=== PATIENT | female | born 1975 | race Caucasian/White ===

== ENCOUNTER 2022-09-10 12:44 | Outpatient (CLI) | payer BC, SELFPAY | END 2022-09-10 12:45 | disposition home or self-care (01) | LOC: DI.CARD 12:45 | PROVIDERS: PCP Nurse Practitioner; Visit Provider Internal Medicine Cardiovascular Disease | CPT/HCPCS: 93010 ==

== ENCOUNTER 2022-09-11 11:17 | Outpatient (CLI) | payer BC, SELFPAY ==
--- NOTE | 2022-09-11 11:15 | RT.EKG_ITS ---
APPROVED REPORT Exam: Resting ECG Reason for Exam: cardiac evaluation Patient Location: O HR:64 bpm ECG Measurements Heart Rate 64 AXIS [place] 172 P 6 QRSd 84 QRS 39 QT 393 T 36 QTc 406 Conclusion Sinus rhythm...normal P axis, V-rate 50- 99 Normal Electrocardiogram
== END 2022-09-11 11:18 | disposition home or self-care (01) ==
LOC: DI.CARD 11:18
PROVIDERS: PCP Nurse Practitioner; Visit Provider Internal Medicine Cardiovascular Disease
DX: I20.9 Angina pectoris, unspecified (principal)
CPT/HCPCS: 93010

== ENCOUNTER 2022-10-16 10:43 | Emergency (ER) | payer BC, SELFPAY ==
[2022-10-16] VITALS (39 sets, daily range): BP systolic 104–153; BP diastolic 60–82; PULSE 56–91; RESP 12–34; TEMP 36.3; O2SAT 95–100
--- NOTE | 2022-10-16 10:45 | RT.EKG_ITS ---
APPROVED REPORT Exam: Resting ECG Reason for Exam: chest pain Patient Location: E HR:69 bpm ECG Measurements Heart Rate [address] 185 P 51 QRSd 82 QRS 40 QT 395 T 44 QTc 421 Conclusion Sinus rhythm...normal P axis, V-rate 60- 99 Ventricular premature complex...V complex w/ short R-R interval sinus rhythm, normal axis, normal intervals, non ischemic
--- NOTE | 2022-10-16 10:45 | DI.RAD_ITS ---
Exam(s) XR PORTABLE CHEST AP EXAM: XR PORTABLE CHEST AP CLINICAL HISTORY: chest pain. TECHNIQUE: 2D digital imaging was performed. COMPARISON: No exams were available for comparison FINDINGS: Single AP portable view. Heart size is upper normal. The mediastinum is not widened. Lungs are clear. No infiltrates nor obvious pleural effusions. IMPRESSION: No acute pulmonary findings on this single AP portable view of the chest. DATA REPOSITORY: RADIATION DOSE DELIVERED:
--- NOTE | 2022-10-16 10:53 | W.ED.GENAD ---
Discharge Plan Disposition Patient Disposition: Home Condition: Improving Discharge Details Chief Complaint: Chest Pain Clinical Impression: Chest pain Primary Care Provider: Joanne Hernandez ED Provider: Nate Crystal Home Meds and New Rx's Prescriptions: No Action fexofenadine-pseudoephedrine [Idalmis-D 12 Hour] 60-120 mg tablet extended release 12 hr 1 tab PO Q12H PRN fluticasone propionate 50 mcg/actuation spray,suspension 1 spray intranasal DAILY Rx Instructions: administer into each nostril albuterol sulfate 2.5 mg /3 mL (0.083 %) solution for nebulization 2.5 mg inhalation Q6H isosorbide mononitrate 30 mg tablet extended release 24 hr 30 mg PO DAILY Qty: 30 11RF atorvastatin 20 mg tablet 20 mg PO DAILY spironolactone 25 mg tablet 25 mg PO DAILY metoprolol succinate 50 mg tablet extended release 24 hr 50 mg PO DAILY aspirin [Adult Low Dose Aspirin] 81 mg tablet,delayed release (DR/EC) 81 mg PO DAILY albuterol sulfate 90 mcg/actuation HFA aerosol inhaler 1 puff inhalation Q4H PRN Discharge Instructions Instructions: Chest Pain (ED) Additional Instructions: Please follow-up with your primary care physician and cold storage supervisor. Medical Decision Making 47-year-old female history of microvascular coronary artery disease, presents referred by primary cardiology team for evaluation of continued chest pain nonexertional over the last several days, mild shortness of breath, no history of stents open heart surgery or thromboembolic disease. Patient is relatively nontoxic nontachycardic normotensive not hypoxic. Lungs clear bilaterally, mild peripheral edema to bilateral ankles. Consider ACS versus musculoskeletal chest pain versus anxiety versus less likely COPD or asthma lower suspicion for PE or aortic pathology. Will obtain screening labs chest x-ray EKG, trial of nitro, will administer aspirin 324, pending labs imaging and reassessment of symptoms patient disposition consider home with close follow-up versus admission for further cardiac evaluation. 12: 00 patient resting comfortably feeling much better asymptomatic from a chest pain standpoint. Awaiting second troponin given history. 14: 25 patient resting comfortably chest pain-free to troponin negative. EKG nonischemic. Patient to follow-up with her primary care doctor and cold storage supervisor. HPI General Date/Time Provider Initiated Documentation: 10/16/22 10:52. HPI Narrative: 47-year-old female history of microvascular cardiac disease, presents with anterior chest pain nonexertional over the past several days, has frequent chest pain over the past several months to years, no prior stents or open heart surgery, no history of thromboembolic disease. Referred in by primary cold storage supervisor for evaluation of recurrent chest pain. Related Data Home Medications Medication Instructions Recorded Confirmed albuterol sulfate 90 mcg/actuation 1 puff inhalation Q4H PRN 05/31/22 10/16/22 aerosol inhaler aspirin 81 mg tablet,delayed 81 mg PO DAILY 05/31/22 10/16/22 release (Adult Low Dose Aspirin) atorvastatin 20 mg tablet 20 mg PO DAILY 05/31/22 10/16/22 metoprolol succinate 50 mg 50 mg PO DAILY 05/31/22 10/16/22 tablet,extended release 24 hr spironolactone 25 mg tablet 25 mg PO DAILY 05/31/22 10/16/22 albuterol sulfate 2.5 mg/3 mL 2.5 mg inhalation Q6H 09/11/22 10/16/22 (0.083 %) solution for nebulization fexofenadine 60 mg-pseudoephedrine 1 tab PO Q12H PRN 09/11/22 10/16/22 ER 120 mg tablet,ext.release,12 hr (Idalmis-D 12 Hour) fluticasone propionate 50 1 spray intranasal DAILY 09/11/22 10/16/22 mcg/actuation nasal spray,suspension isosorbide mononitrate 30 mg 30 mg PO DAILY #30 tabs 09/11/22 10/16/22 tablet,extended release 24 hr Previous Rx's Medication Instructions Recorded isosorbide mononitrate 30 mg 30 mg PO DAILY #30 tabs 09/11/22 tablet,extended release 24 hr Allergies Allergy/AdvReac Type Severity Reaction Status Date / Time shrimp Allergy Intermediate hives, Verified 10/16/22 10:52 swelling General Stated Complaint: Chest Pain ESTRELLA: 2 Review of Systems Narrative: Review of Systems Constitutional: negative Eyes: negative ENT: negative Cardiovascular: Chest pain Respiratory: negative Gastrointestinal: negative : negative Musculoskeletal: negative Skin: negative Neurologic: negative Psych: negative PFSH All Active Problems (Updated 10/16/22 @ 14:26 by Nate Crystal MD) Chest pain (Acute) Microvascular angina (Acute) Diabetes type 2, controlled (Acute) Obesity (Chronic) Other fatigue (Acute) Major depressive disorder, recurrent, mild (Acute) Asthma (Chronic) PCOS (polycystic ovarian syndrome) (Acute) Hypertension (Chronic) Diabetes (Chronic) Anemia (Chronic) Adjustment disorder with depressed mood (Acute) ANISHA (obstructive sleep apnea) (Chronic) ADHD (Acute) Surgical History History of (2007) History of cholecystectomy (2009) History of deviated nasal septum (~2018) Family History Maternal Grandfather Alcohol use disorder Heart attack Father Prostate cancer Cancer Lymphoma Mother Cardiac aneurysm Rheumatoid arthritis Paternal Grandfather Cancer Lymphoma Paternal Grandmother Alzheimer disease Maternal Grandmother Stroke Social History Smoking/Tobacco Use Status: Former Tobacco Use tobacco type: cigarettes Tobacco: How many years used: 5 Smoking risk assessment performed?: Yes Alcohol Intake: current Alcohol Intake frequency: a few times a week Drug use: Never Substance use type: does not use Adopted: No Caregiver/Support person: No Foster care: No Household members: spouse and children Housing: house Number of Children: 1 Communication Needs: None Education Level: college Details: Bachelor's Degree Do you need help understanding health information?: Never 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[place], [place] Pets and animals: Yes Pets and animals: cat(s) and dog(s) Sexually active: Yes Do you think of yourself as: bisexual Current gender identity: female What is your relationship status?: How often do you talk on the phone with friends or family?: once per week How often do you get together with friends or relatives?: once per week Do you belong to any clubs or organized social groups?: no Panel score (0-1 are the most socially isolated patients): 1 What type of physical activity do you participate in: none Codi/Rastafarian: None Special codi needs: No Seatbelt use: sometimes Drive intox or ride w/intox party bus driver: No Do you feel safe at home: Yes Do you feel safe in your relationship?: Yes Exam Narrative Exam Narrative: Physical Examination General: alert, awake, cooperative, mildly uncomfortable HEENT: normocephalic, atraumatic; PERRL, EOM intact, conjunctiva normal; no nasal discharge; moist mucous membranes, oral and pharyngeal mucosa normal, tolerating secretions Neck: supple, trachea midline; full ROM Chest: normal to inspection Respiratory: normal respiratory effort, speaking in full sentences, clear to auscultation, no wheezing, rales or rhonchi Cardiac: regular rate, regular rhythm, S1S2 intact, no murmurs rubs or gallops GI: abdomen soft, non-tender, non-distended; no palpable mass or hepatosplenomegaly Skin: no lesions, rashes or trauma appreciated Neuro: AAOx3, normal speech, moving all extremities Extremities: Mild edema bilateral ankles Psych: Appropriate mood and affect Course Vital Signs Vital signs: Vital Signs Temperature 36.3 C L 10/16/22 10:49 Pulse 81 10/16/22 10:49 Respiratory Rate 24 10/16/22 10:49 Blood Pressure 153/78 H 10/16/22 10:49 Pulse Oximetry 98 10/16/22 10:49 Temperature 36.3 C L 10/16/22 10:49 Temperature Source Oral 10/16/22 10:49 Pulse 81 10/16/22 10:49 Respiratory Rate 24 10/16/22 10:49 Blood Pressure 153/78 H 10/16/22 10:49 Blood Pressure Position Supine 10/16/22 10:49 Pulse Oximetry 98 10/16/22 10:49 Oxygen Delivery Method Room Air 10/16/22 10:49 Oxygen Flow Rate 0 10/16/22 10:49 Pain Level 4 10/16/22 10:49
[2022-10-16 11:05] LABS: Abs Immature Grans 0.03 10^3/uL (0.0-0.06); Absolute Basophil Count 0.06 10^3/uL (0.0-0.2); Absolute Eosinophil Count 0.47 10^3/uL (0.0-0.7); Absolute Lymphocyte Count 2.58 10^3/uL (1.2-3.4); Absolute Monocyte Count 0.57 10^3/uL (0.1-0.8); Absolute Neutrophil Count 6.56 10^3/uL (1.2-6.7); Basophils % 0.6; Eosinophils % 4.6; HCT 42.9 % (36.0-46.0); HGB 13.5 g/dL (11.2-15.7); Immature Grans % 0.3; Lymphocytes % 25.1; MCH 26.1 pg (27.0-33.0); MCHC 31.5 % (32.0-36.0); MCV 83 fL (80-95); MPV 10.1 fL (8.0-11.0); Monocytes % 5.6; Neutrophils % 63.8; Platelet Count 360 10^3/uL (130-400); RBC 5.18 10^6/uL (3.93-5.22); RDW 14.1 % (11.7-14.6); RDW-SD 42.5 fL; WBC 10.27 10^3/uL (4.4-10.8)
[2022-10-16 11:20] LABS: PTT Activated 27.5 sec (21.5-31.9); Prothrombin Time 10.2 sec (9.3-11.0)
[2022-10-16 11:31] LABS: ALT 34 U/L (14-59); AST 20 U/L (15-37); Albumin 3.8 g/dL (3.4-5.0); Alkaline Phosphatase 142 U/L (46-116); Anion Gap 9.9 mmol/L (3-11); BUN 13 mg/dL (7-18); Bilirubin, Total 0.4 mg/dL (0.2-1.0); CO2 29.1 mmol/L (21.0-32.0); CREATININE 0.9 mg/dL (0.55-1.02); Calcium 9.2 mg/dL (8.5-10.1); Chloride 104 mmol/L (98-107); Estimated GFR 79.85 (mL/min/1.73m2); Glucose 111 mg/dL (74-106); NT-proBNP 15 pg/mL (<300); Potassium 3.7 mmol/L (3.5-5.1); Sodium 143 mmol/L (136-145); TSH (W/Ref FT4) 0.98 uIU/mL (0.36-3.74); Total Protein 8.2 g/dL (6.4-8.2); Troponin I < 50 ng/L (<or=60)
[2022-10-16] MEDS: nitroGLYcerin 0.4 MG TAB SL (11:49)
[2022-10-16] MEDS: Aspirin 81 MG CHEW 324 MG CH (11:49)
[2022-10-16 14:14] LABS: Troponin I < 50 ng/L (<or=60)
== END 2022-10-16 14:34 | disposition home or self-care (01) ==
PROVIDERS: Emergency Provider Emergency Medicine; PCP Nurse Practitioner
DX: R07.89 Other chest pain (principal); R06.02 Shortness of breath; R60.0 Localized edema; I25.10 Atherosclerotic heart disease of native coronary artery without angina pectoris; Z79.82 Long term (current) use of aspirin; Z87.891 Personal history of nicotine dependence
CPT/HCPCS: 80053; 93005; 99283; 71045; 83880; 84443; 84484; 85025; 85610; 85730; 93010; 99285

== ENCOUNTER 2023-02-08 01:37 | Outpatient (CLI) | payer BC, SELFPAY ==
[2023-02-08 08:01] LABS: Abs Immature Grans 0.03 10^3/uL (0.0-0.06); Absolute Basophil Count 0.09 10^3/uL (0.0-0.2); Absolute Eosinophil Count 0.49 10^3/uL (0.0-0.7); Absolute Lymphocyte Count 2.27 10^3/uL (1.2-3.4); Absolute Monocyte Count 0.74 10^3/uL (0.1-0.8); Absolute Neutrophil Count 8.06 10^3/uL (1.2-6.7); Basophils % 0.8; Eosinophils % 4.2; HCT 39.9 % (36.0-46.0); HGB 12.7 g/dL (11.2-15.7); Immature Grans % 0.3; Lymphocytes % 19.4; MCH 26.3 pg (27.0-33.0); MCHC 31.8 % (32.0-36.0); MCV 83 fL (80-95); MPV 10.2 fL (8.0-11.0); Monocytes % 6.3; Platelet Count 350 10^3/uL (130-400); RBC 4.82 10^6/uL (3.93-5.22); RDW 14.1 % (11.7-14.6); RDW-SD 42.4 fL; WBC 11.68 10^3/uL (4.4-10.8)
[2023-02-08 08:04] LABS: ESR 41 mm/hr (0-20)
[2023-02-08 09:12] LABS: C-Reactive Protein 0.93 mg/dL (0.0-0.3)
[2023-02-08 11:01] LABS: Vitamin B12 180 pg/mL (193-986)
[2023-02-08 11:13] LABS: Vitamin D 25 Total 10.6 ng/mL (30-100)
[2023-02-08 19:17] LABS: Rheumatoid Factor <8.6 IU/mL (<12.0)
[2023-02-11 12:07] LABS: Lyme Ab w Rflx to Lyme Confirm Negative (Negative)
[2023-02-11 12:41] LABS: ANA Interpretation Negative (Negative)
[2023-02-11 18:06] LABS: Anaplasma phagocytophilum Negative (Negative); B. miyamotoi PCR Negative (Negative); Babesia divergens/MO-1 Negative (Negative); Babesia duncani Negative (Negative); Babesia microti Negative (Negative); Ehrlichia chaffeensis Negative (Negative); Ehrlichia ewingii/canis Negative (Negative); Ehrlichia muris eauclairensis Negative (Negative)
== END 2023-02-08 01:38 | disposition home or self-care (01) ==
LOC: LBO 01:38
PROVIDERS: PCP Nurse Practitioner; Visit Provider Nurse Practitioner
DX: R06.02 Shortness of breath (principal); R53.83 Other fatigue; R60.9 Edema, unspecified; R79.82 Elevated C-reactive protein (CRP)
CPT/HCPCS: 36415; 82306; 85652; 87798; 82607; 85025; 86038; 86140; 86431; 86618

== ENCOUNTER 2023-03-11 10:27 | Outpatient (REF) | payer BC, SELFPAY ==
--- NOTE | 2023-03-11 09:50 | PAPFT_PTH ---
PATIENT: Rafia Busby LOC: [facility] U#:[id number] AGE/SX: 47/F ROOM: RE03/11/[address]: Angela Gleason NP : 1975 BED: DIS: 03/11/2023 SPEC #: [id number] RECD: 03/11/23 13:05 STATUS: FINESSE RENicolette #: [id number] DELROY: 03/11/23 09:[address]: Angela Gleason NP DEPT: [facility] Cytology RECD BY: Opal Young ENTERED: 03/11/23 13:05 SP TYPE: PAPFT OTHR DR: Joanne Hernandez APRN Tissues: 1 - CX/ENDOCX FOR PAP SMEARS Procedures: PAP THIN PREP/UVM Screening HPV DNA PROBE Comments: [id number]
== END 2023-03-11 10:28 | disposition home or self-care (01) ==
LOC: LBN 10:27
PROVIDERS: PCP Nurse Practitioner; Visit Provider Nurse Practitioner Women's Health
DX: Z12.4 Encounter for screening for malignant neoplasm of cervix (principal); Z11.51 Encounter for screening for human papillomavirus (HPV)
CPT/HCPCS: 88142; 87624

== ENCOUNTER → 2023-03-26 00:59 | Outpatient (CLI) | payer BC, SELFPAY ==
--- NOTE | 2023-03-26 07:45 | DI.MAMMO_ITS ---
Exam(s) MAMMO SCREENING EXAM: MAMMO SCREENING CLINICAL HISTORY: screening TECHNIQUE: Bilateral full field digital CC and MLO mammographic images were obtained with 3D tomosyn thesis and utilizing computer aided detection (CAD). COMPARISON: Available for comparison. FINDINGS: Masses/Architectural Distortion: There is a focal asymmetry in the upper right breast on the MLO view . This may represent overlying fibroglandular tissue, but spot compression views are requested for f urther evaluation. Microcalcifications: No suspicious pleomorphic-type are seen. Skin Thickening/Nipple Retraction: None. IMPRESSION: 1. Focal asymmetry in the upper right breast on the MLO view. 2. Spot compression views requested for further evaluation. Limited ultrasound may be indicated at t hat time. BI-RADS Category 0 - Assessment Incomplete: Need additional imaging evaluation Breast Density - Category C - Heterogeneously dense Breast density category C or D implies that the patient has dense breast tissue. Dense breast tissue is very common and is not abnormal but dense breast tissue can make it harder to find cancer on a ma mmogram. Also, dense breast tissue may increase their breast cancer risk. This information about the result of the mammogram report was provided to the patient to raise their awareness. Use this report when you speak with the patient about their risks for breast cancer, which includes their family hist ory. At that time, you may recommend for more screening tests (Ultrasound or MRI) as they might be us eful based on their risk. A negative radiographic report should not delay biopsy if a dominant or clinically suspicious mass is present. Up to ten percent of cancers are not identified on mammography. A negative report may reinforce clinical impression. Adenosis and dense breasts may obscure an underlying neoplasm. False positive reports average 6 to 10%. Patient will receive a letter notifying them of these results.
== END ==
PROVIDERS: PCP Nurse Practitioner; Visit Provider Nurse Practitioner Women's Health
DX: Z12.31 Encounter for screening mammogram for malignant neoplasm of breast (principal)
CPT/HCPCS: 77063; 77067

== ENCOUNTER → 2023-04-05 00:17 | Outpatient (CLI) | payer BC, SELFPAY ==
--- NOTE | 2023-04-05 | DI.MAMMO_ITS ---
Exam(s) MAMMO SCREEN CALL BACK UNI EXAM: MAMMO SCREEN CALL BACK UNI CLINICAL HISTORY: FOCAL ASYMMETRY UPPER RIGHT BREAST R92.8 ABNL MAMMO. TECHNIQUE: Craniocaudal and mediolateral oblique Full Field Digital Mammography views of the right b reast with Computer Aided Diagnosis. COMPARISON: Comparison is made with prior examinations. FINDINGS: Mammography/Tomosynthesis: Masses/Architectural Distortion: The area identified is no longer visualized and rendered less concer chai. It appears to represent overlying fibroglandular tissue. No mass or areas of architectural di stortion are seen. Microcalcifictions: No suspicious pleomorphic-type are seen. Skin Thickening/Nipple Retraction: None. IMPRESSION: 1. No evidence of malignancy is noted. 2. Unless there is more urgent need, follow-up screening mammography is recommended, as per [place] [employer] guidelines. 3. The findings were discussed with the patient on the date of the examination. BI-RADS Category 1 - Negative Breast Density - Category C - Heterogeneously dense Breast density Category C or D implies that the patient has dense breast tissue. Dense breast tissue can make it harder to find cancer on a mammogram. Dense breast tissue is also associated with an incr eased risk of breast cancer. This information about the result of the mammogram report was provided to the patient to raise their awareness. Use this report when you speak with the patient about their risks for breast cancer, which includes their family history. At that time, you may recommend additional screening tests (Ultrasoun d or MRI) as these tests may add significant information. A negative radiographic report should not delay biopsy if a dominant or clinically suspicious mass is present. Up to ten percent of cancers are not identified on mammography. A negative report may reinforce clinical impression. Adenosis and dense breasts may obscure an underlying neoplasm. False positive reports average 6 to 10%. Patient will receive a letter notifying them of these results.
== END ==
PROVIDERS: PCP Nurse Practitioner; Visit Provider Nurse Practitioner Women's Health
DX: Z12.31 Encounter for screening mammogram for malignant neoplasm of breast (principal); R92.8 Other abnormal and inconclusive findings on diagnostic imaging of breast
CPT/HCPCS: 77063; 77067

== ENCOUNTER 2023-09-18 02:33 | Outpatient (CLI) | payer BC, SELFPAY ==
[2023-09-18 09:34] LABS: TSH (W/Ref FT4) 1.29 uIU/mL (0.36-3.74)
[2023-09-24 10:14] LABS: FSH 5.9 mIU/mL (See Note)
== END 2023-09-18 02:34 | disposition home or self-care (01) ==
LOC: LBO 02:33
PROVIDERS: PCP Nurse Practitioner; Visit Provider Obstetrics & Gynecology
DX: R23.2 Flushing (principal)
CPT/HCPCS: 36415; 83001; 84443

== ENCOUNTER 2023-12-03 18:14 | Outpatient (REF) | payer BC, SELFPAY | END 2023-12-03 18:15 | disposition home or self-care (01) | LOC: LBN 18:14 | PROVIDERS: PCP Nurse Practitioner; Visit Provider Nurse Practitioner | DX: R39.89 Other symptoms and signs involving the genitourinary system (principal); Z87.898 Personal history of other specified conditions; R82.89 Other abnormal findings on cytological and histological examination of urine | CPT/HCPCS: 87086 ==

== ENCOUNTER 2023-12-30 10:34 | Outpatient (CLI) | payer BC, SELFPAY ==
--- NOTE | 2023-12-30 10:30 | RT.EKG_ITS ---
APPROVED REPORT Exam: Resting ECG Reason for Exam: Follow up ekg Patient Location: O HR:62 bpm ECG Measurements Heart Rate 62 AXIS [place] 173 P -7 QRSd 89 QRS 29 QT 414 T 25 QTc 421 Conclusion Sinus rhythm...normal P axis, V-rate 50- 99 Otherwise normal ECG Low voltage, precordial leads...precordial leads <1.0mV
== END 2023-12-30 10:35 | disposition home or self-care (01) ==
LOC: DI.CARD 10:35
PROVIDERS: PCP Nurse Practitioner; Visit Provider Internal Medicine Cardiovascular Disease
DX: I20.89 Other forms of angina pectoris; I10 Essential (primary) hypertension
CPT/HCPCS: 93010

== ENCOUNTER 2025-02-26 00:38 | Outpatient (CLI) | payer BC, SELFPAY ==
--- NOTE | 2025-02-26 08:00 | DI.MAMMO_ITS ---
Exam(s) MAMMO SCREENING EXAM: MAMMO SCREENING CLINICAL HISTORY: screening,Z12.39. TECHNIQUE: Bilateral full field digital CC and MLO mammographic images were obtained with 3D tomosynthesis and utilizing computer aided detection (CAD). COMPARISON: Prior mammograms were reviewed. FINDINGS: Fibroglandular tissue pattern is again noted be moderately dense. In the left breast on the 3D cc view there is an asymmetric density-possible nodule measuring 7 x 5 mm located 7 cm in from the nipple on the CC view. Spot compression view and ultrasound recommended. There are no malignant-appearing microcalcification groups in this region or elsewhere in either breast. No new significant focal findings in the opposite-right breast. A few benign intramammary lymph nodes are again noted posteriorly. There is no significant architectural distortion nor skin thickening-retraction. IMPRESSION: 1. No radiographic evidence of malignancy in the right breast. 2. There is a 7 x 5 mm nodular density in left breast seen at 12 or 6 o'clock position on the CC view. Spot compression CC view and ultrasound recommended BI-RADS Category 0 - Incomplete: Need additional imaging evaluation Breast Density - Category C - The breast are heterogeneously dense, which may obscure small masses. Breast density Category C or D implies that the patient has dense breast tissue. Dense breast tissue can make it harder to find cancer on a mammogram. Dense breast tissue is also associated with an increased risk of breast cancer. This information about the result of the mammogram report was provided to the patient to raise their awareness. Use this report when you speak with the patient about their risks for breast cancer, which includes their family history. At that time, you may recommend additional screening tests (Ultrasound or MRI) as these tests may add significant information. A negative radiographic report should not delay biopsy if a dominant or clinically suspicious mass is present. Up to ten percent of cancers are not identified on mammography. A negative report may reinforce clinical impression. Adenosis and dense breasts may obscure an underlying neoplasm. False positive reports average 6 to 10%. Patient will receive a letter notifying them of these results.
== END 2025-02-26 00:58 ==
PROVIDERS: PCP Nurse Practitioner; Visit Provider Nurse Practitioner
DX: Z12.31 Encounter for screening mammogram for malignant neoplasm of breast (principal); R92.333 Mammographic heterogeneous density, bilateral breasts
CPT/HCPCS: 77063; 77067

== ENCOUNTER 2025-03-22 01:32 | Outpatient (CLI) | payer BC, SELFPAY ==
--- NOTE | 2025-03-22 | DI.MAMMO_ITS ---
Exam(s) MG MAMMO SCREEN CALL BACK UNI US BREAST LT COMPLETE EXAM: MG MAMMO SCREEN CALL BACK UNI CLINICAL HISTORY: 7 x 5 mm asymmetric density-possible nodule 7 cm from nipple, Lt breast. TECHNIQUE: Craniocaudal spot compression digital Mammography views of the leftbreast with Tomosynthesis and left breast ultrasound. COMPARISON: Recent exam of 26 February 2025 and exam exams from 2021 and 2022. FINDINGS: Mammography/Tomosynthesis: Masses: The previously noted area nodularity appears decreased in prominence. Architectural Distortion: None seen. Microcalcifictions: No suspicious pleomorphic-type are seen. Skin Thickening/Nipple Retraction: None. Left breast US: Echotexture: Normal appearance of the glandular tissue. Shadowing: No suspicious foci. Cyst: Multiple small cysts. Solid lesions: None seen. Ductal dilation: None. Normal appearing left axillary lymph nodes. IMPRESSION: 1. No evidence of malignancy is noted. 2. Unless there is more urgent need, follow-up screening mammography is recommended, as per [place] [employer] guidelines. 3. The findings were discussed with the patient on the date of the examination. BI-RADS Category 2 - Benign Findings Breast Density - Category C - The breast are heterogeneously dense, which may obscure small masses. Breast density Category C or D implies that the patient has dense breast tissue. Dense breast tissue can make it harder to find cancer on a mammogram. Dense breast tissue is also associated with an increased risk of breast cancer. This information about the result of the mammogram report was provided to the patient to raise their awareness. Use this report when you speak with the patient about their risks for breast cancer, which includes their family history. At that time, you may recommend additional screening tests (Ultrasound or MRI) as these tests may add significant information. A negative radiographic report should not delay biopsy if a dominant or clinically suspicious mass is present. Up to ten percent of cancers are not identified on mammography. A negative report may reinforce clinical impression. Adenosis and dense breasts may obscure an underlying neoplasm. False positive reports average 6 to 10%. Patient will receive a letter notifying them of these results.
== END 2025-03-22 01:52 ==
LOC: DI 01:32
PROVIDERS: PCP Nurse Practitioner; Visit Provider Nurse Practitioner
DX: Z12.31 Encounter for screening mammogram for malignant neoplasm of breast (principal); R92.333 Mammographic heterogeneous density, bilateral breasts
CPT/HCPCS: 76642; 77063; 77067

== ENCOUNTER 2025-05-23 18:04 | Emergency (ER) | payer OTHER, SELFPAY ==
[2025-05-23] VITALS (15 sets, daily range): BP systolic 100–137; BP diastolic 33–88; PULSE 76–122; RESP 18; TEMP 36.3; O2SAT 93–100
--- NOTE | 2025-05-23 18:26 | W.ED.GENAD ---
Discharge Plan Disposition Patient Disposition: Home Discharge Details Clinical Impression: Gastroenteritis, Hypokalemia Primary Care Provider: Joanne Hernandez ED Provider: Hanny Lino Home Meds and New Rx's Prescriptions: No Action fluticasone propionate 50 mcg/actuation spray,suspension 1 spray intranasal DAILY Rx Instructions: administer into each nostril Dramamine 25 mg tablet,chewable 50 mg PO Q8H semaglutide 1 mg/dose (4 mg/3 mL) pen injector 1 mg subcut QWEEK Qty: 3 8RF Liletta 20.4 mcg/24 hrs (8 yrs) 52 mg intrauterine device 1 device intrauterine ONCE Rx Instructions: as a single dose aspirin [Adult Low Dose Aspirin] 81 mg tablet,delayed release (DR/EC) 81 mg PO DAILY metronidazole 0.75 % cream 1 applic topical QAM Patient Comments: 11/14/22 DERM APPOINTMENT Azealic Acid 15% Gel topical QPM albuterol sulfate 90 mcg/actuation HFA aerosol inhaler 1 puff inhalation Q4H PRN (Reason: shortness of breath or wheezing) Qty: 8.5 6RF ipratropium-albuterol 0.5 mg-3 mg(2.5 mg base)/3 mL solution for nebulization 3 ml inhalation Q4H PRN (Reason: shortness of breath or wheezing) Qty: 90 1RF atorvastatin 20 mg tablet See Rx Instructions .ROUTE .COMPLEX Qty: 90 3RF Dose Instruction: TAKE ONE TABLET BY MOUTH EVERY DAY Rx Instructions: TAKE ONE TABLET BY MOUTH EVERY DAY metoprolol succinate 50 mg tablet extended release 24 hr See Rx Instructions .ROUTE .COMPLEX Qty: 90 3RF Dose Instruction: TAKE ONE TABLET BY MOUTH EVERY DAY Rx Instructions: TAKE ONE TABLET BY MOUTH EVERY DAY isosorbide mononitrate 60 mg tablet extended release 24 hr See Rx Instructions .ROUTE .COMPLEX Qty: 90 3RF Dose Instruction: TAKE ONE TABLET BY MOUTH EVERY DAY Rx Instructions: TAKE ONE TABLET BY MOUTH EVERY DAY meloxicam 7.5 mg tablet 7.5 mg PO DAILY PRN Discharge Instructions Instructions: Viral gastroenteritis in adults, High Potassium Diet Additional Instructions: Please call your primary care provider if you are not feeling significantly better in the next couple of days. I recommend that you stay well-hydrated, drinking plenty of fluids throughout the day. I encourage you to add in electrolyte rich fluids such as Gatorlyte/Pedialyte. Try starting with gentle foods at first, such as chicken broth, toast, bananas, applesauce. Your potassium was very low today, I recommend that you consumption of potassium rich foods such as bananas, potatoes, oranges. Return to emergency care if you develop new episodes of dizziness, severe abdominal pain, uncontrollable vomiting, feel you are getting dehydrated, or if you are very worried and need to be rechecked again immediately Referrals: [facility] [Provider Group] HPI General Date/Time Provider Initiated Documentation: 05/23/25 18:24. HPI Narrative: Christina is a 49-year-old female presents to the emergency department today for evaluation of nausea/vomiting/diarrhea with generalized abdominal pain x 2 days. 49-year-old female with diabetes presenting with nausea, vomiting, and diarrhea since 05/21/2025. Diarrhea severe on 05/22/2025 with watery stools >5-6 times/day, no blood. Vomiting started 05/22/2025, unable to retain food or water. Temperature 100.1?F prior to visit. Reports right lower abdominal pain, urinary hesitancy, significant gas pain, and discomfort. Suspects food poisoning. Managing diabetes with diet and semaglutide. Suspected sinus infection earlier this week with fatigue and stuffiness, mild coughing, no sore throat, ear pain, or difficulty breathing. PAST SURGICAL HISTORY: Gallbladder removal PMH: T2DM (controlled with semaglutide), HTN, HLD, anemia, PCOS, asthma Related Data Home Medications ?Medication ?Instructions ?Recorded ?Confirmed aspirin 81 mg tablet,delayed 81 mg PO DAILY 05/31/22 05/23/25 release (Adult Low Dose Aspirin) fluticasone propionate 50 1 spray intranasal DAILY 09/11/22 05/23/25 mcg/actuation nasal spray,suspension Azealic Acid 15% Gel topical QPM 11/14/22 05/11/25 metronidazole 0.75 % topical cream 1 applic topical QAM 11/14/22 05/23/25 levonorgestrel 20.4 mcg/24 hr (up 1 device intrauterine ONCE 03/11/23 05/23/25 to 8 yrs) 52 mg intrauterine device (Liletta) dimenhydrinate 25 mg chewable 50 mg PO Q8H 02/03/24 05/23/25 tablet (Dramamine) albuterol sulfate 90 mcg/actuation 1 puff inhalation Q4H PRN 06/26/24 05/23/25 aerosol inhaler shortness of breath or wheezing #8.5 grams ipratropium 0.5 mg-albuterol 3 mg 3 ml inhalation Q4H PRN shortness 06/26/24 05/23/25 (2.5 mg base)/3 mL nebulization of breath or wheezing #90 mL soln semaglutide 1 mg/dose (4 mg/3 mL) 1 mg (0.75 mL) subcut QWEEK #3 mL 09/21/24 05/23/25 subcutaneous pen injector atorvastatin 20 mg tablet See Rx Instructions .Route 02/09/25 05/23/25 .COMPLEX #90 tabs metoprolol succinate 50 mg See Rx Instructions .Route 02/09/25 05/23/25 tablet,extended release 24 hr .COMPLEX #90 tabs isosorbide mononitrate 60 mg See Rx Instructions .Route 04/27/25 05/23/25 tablet,extended release 24 hr .COMPLEX #90 tabs meloxicam 7.5 mg tablet 7.5 mg PO DAILY PRN 05/06/25 05/23/25 Previous Rx's ?Medication ?Instructions ?Recorded albuterol sulfate 90 mcg/actuation 1 puff inhalation Q4H PRN 06/26/24 aerosol inhaler shortness of breath or wheezing #8.5 grams ipratropium 0.5 mg-albuterol 3 mg 3 ml inhalation Q4H PRN shortness 06/26/24 (2.5 mg base)/3 mL nebulization of breath or wheezing #90 mL soln semaglutide 1 mg/dose (4 mg/3 mL) 1 mg (0.75 mL) subcut QWEEK #3 mL 09/21/24 subcutaneous pen injector atorvastatin 20 mg tablet See Rx Instructions .Route 02/09/25 .COMPLEX #90 tabs metoprolol succinate 50 mg See Rx Instructions .Route 02/09/25 tablet,extended release 24 hr .COMPLEX #90 tabs isosorbide mononitrate 60 mg See Rx Instructions .Route 04/27/25 tablet,extended release 24 hr .COMPLEX #90 tabs Allergies Allergy/AdvReac Type Severity Reaction Status Date / Time shrimp Allergy Intermediate hives, Verified 05/23/25 18:09 swelling General Stated Complaint: Nausea/Vomit/Diar ESTRELLA: 3 Exam Narrative Exam Narrative: General Appearance: Normal. Actively retching during exam Vital signs: Tachycardia HEENT: Tacky mucous membranes Respiratory: Clear breath sounds bilaterally, no wheezes, rales, or rhonchi. Cardiovascular: Tachycardia noted, normal heart sounds, no murmurs, rubs, or gallops. Gastrointestinal: Abdomen diffusely tender, especially in left upper and right upper quadrant. Normoactive bowel sounds. No CVA tenderness Skin: Warm and dry, no rash. Psychiatric: Normal. Course Vital Signs Vital signs: Vital Signs Temperature 36.3 C L 05/23/25 18:06 Pulse 122 H 05/23/25 18:06 Respiratory Rate 18 05/23/25 18:06 Blood Pressure 134/88 05/23/25 18:06 Pulse Oximetry 95 05/23/25 18:06 Temperature 36.3 C L 05/23/25 18:06 Pulse 122 H 05/23/25 18:06 Respiratory Rate 18 05/23/25 18:06 Blood Pressure 134/88 05/23/25 18:06 Pulse Oximetry 95 05/23/25 18:06 Oxygen Delivery Method Room Air 05/23/25 18:06 Oxygen Flow Rate 0 05/23/25 18:06 Pain Level 6 05/23/25 18:06 Medical Decision Making Initial Assessment: 49-year-old female with nausea, vomiting, and diarrhea since Saturday night. Unable to keep anything down, including water. Fever of 100.1?F before arrival. Diabetic, controlled with semaglutide. Suspected sinus infection earlier this week. Differential Diagnosis includes but is not limited to: Viral gastroenteritis, bacterial gastroenteritis/food poisoning, electrolyte imbalance, dehydration, AQUILINO Clinical course - IV fluids administered - Antiemetic administered - Labs obtained I independently interpreted the following tests; CBC notable for leukocytosis, white cell count 14.28. CMP largely reassuring, hypokalemia noted with potassium 3.2. VBG, magnesium, lipase all unremarkable. CT abdomen/pelvis unremarkable, no acute findings. After receiving IV fluids and antiemetic Rafia felt significantly better, was able to take p.o. diana amy and crackers without difficulty. She has not urinated since coming to the emergency department after receiving 1 L of fluid and taking p.o., so a second liter of lactated Ringer's was administered for rehydration. Final Assessment: Gastroenteritis Clinical Impression: - Gastroenteritis with dehydration - Hypokalemia Reviewed discharge instruction with patient, including symptomatic management, potassium replenishment, and red flags indicate need for return to emergency care. Patient consented to the use of [facility] Imaging Data Radiologic Study: Radiologist's impression: PROCEDURE INFORMATION: Exam: CT Abdomen And Pelvis With Contrast Exam date and time: 05/23/2025 8:08 PM Age: 49 years old Clinical indication: Nausea and vomiting and other: Diarrhea; Prior surgery; Surgery date: 6+ months; Surgery type: Cholecystectomy, TECHNIQUE: Imaging protocol: Computed tomography of the abdomen and pelvis with contrast. Radiation optimization: All CT scans at this facility use at least one of these dose optimization techniques: automated exposure control; mA and/or kV adjustment per patient size (includes targeted exams where dose is matched to clinical indication); or iterative reconstruction. Contrast material: OMNIPAQUE 350; Contrast volume: 100 ml; Contrast route: INTRAVENOUS (IV); COMPARISON: US RENAL PELVIC TRANSVAGINAL 12/26/2023 7:44 AM FINDINGS: Lungs: Lung bases are clear. Liver: The liver has a normal appearance. Gallbladder and biliary ducts: The gallbladder is surgically absent. Pancreas: The pancreas demonstrates normal size. No pancreatic ductal dilatation. Spleen: The spleen demonstrates normal size. Adrenal glands: The adrenal glands have a normal appearance. Kidneys and ureters: The kidneys are normal in size. No hydronephrosis. No hydroureter or ureterolithiasis. Stomach and bowel: Unremarkable. No obstruction. No mucosal thickening. Appendix: The appendix is thin walled. Intraperitoneal space: Unremarkable. No free air. No significant fluid collection. RAFIA ARAIZA Preliminary Radiology Report CATALOG LIBRARY ASSISTANT (QA) DISCREPANCY? If there is a discrepancy between the preliminary and final interpretation, please notify [facility] via [email or web address]. If you do not have access to our QA portal, call our QA team at [phone] CONFIDENTIALITY STATEMENT This report is intended only for the use of the referring physician, and only in accordance with law, If you received this in error, call [phone] Page 2 of 2 Vasculature: The IVC and aorta have a normal appearance. Lymph nodes: No enlarged lymph nodes. Urinary bladder: The bladder is decompressed. Reproductive: The uterus has a normal appearance. An IUD is present in the uterine fundus where expected. Bones/joints: Bones have a normal appearance. No acute fracture or suspicious bone lesion. There is incidentally noted bilateral sacroiliac joint sclerosis. No suspicious bony erosions. Soft tissues: Unremarkable. IMPRESSION: 1. No acute intra-abdominal findings. 2. Normal appendix PFSH All Active Problems (Updated 05/23/25 @ 22:08 by Hanny Beard) Hypokalemia (Acute) Gastroenteritis (Acute) Seasonal allergies (Acute) Sore throat (Acute) Breast nodule (Acute) Sebaceous cyst (Acute) Sensorineural hearing loss (SNHL) of both ears (Acute) Lateral epicondylitis, right elbow (Acute ~11/2024) 12/08/24 [facility] Biceps tendon rupture (Acute) Insomnia (Acute) Hot flashes (Acute) Shortness of breath (Acute) URI (upper respiratory infection) (Acute) IUD surveillance (Acute) Vitamin D deficiency (Acute) Vitamin B12 deficiency (Acute) Rosacea (Acute ~10/2022) 12/09/22 Derm Microvascular angina (Acute) 04/12/23 f/u Cardiology Diabetes type 2, controlled (Acute) 11/26/22 Endocrinology Obesity (Chronic) Other fatigue (Acute) Major depressive disorder, recurrent, mild (Acute) Asthma (Chronic) PCOS (polycystic ovarian syndrome) (Acute) Hypertension (Chronic) Diabetes (Chronic) Anemia (Chronic) Adjustment disorder with depressed mood (Acute) ANISHA (obstructive sleep apnea) (Chronic) Uses CPAP 11/25/24 F[facility]u at [facility] ADHD (Acute) Medical History (Updated 05/23/25 @ 22:08 by Hanny Beard) COVID (~06/2024) History of arthroplasty of right elbow (~03/2024) 05/21/24 [facility] f/u d/t re injury of r elbow. Rupture of right biceps tendon (~03/2024) Rupture of right distal biceps tendon (~03/2024) 03/19/24 Dr Benitez, [facility] Partial tear of common extensor tendon of right elbow (~03/2024) 03/19/24 Dr Benitez [facility] 09/01/24 F/U [facility] Surgical History (Updated 10/27/24 @ 16:10 by Chelly Dumont RN) H/O elbow surgery (03/31/24) [facility]. right elbow distal biceps repair, lateral epicondylar release and repair, forearm aponeurotomy History of deviated nasal septum (~2019) History of cholecystectomy (2008) History of (2007) Family History Maternal Grandfather Alcohol use disorder Heart attack Father Prostate cancer Cancer Lymphoma Mother Cardiac aneurysm Rheumatoid arthritis Paternal Grandfather Cancer Lymphoma Paternal Grandmother Alzheimer disease Maternal Grandmother Stroke Social History Smoking/Tobacco Use Status: Former Tobacco Use tobacco type: cigarettes Tobacco: How many years used: 5 Smoking risk assessment performed?: Yes Alcohol Intake: current Alcohol Intake frequency: a few times a week Drug use: Never Substance use type: does not use Adopted: No Caregiver/Support person: No Foster care: No Household members: spouse and children Housing: house Number of Children: 1 Communication Needs: None Education Level: college Details: Bachelor's Degree Do you need help understanding health information?: Never current occupation: [employer] in [place], [place] Pets and animals: Yes Pets and animals: cat(s) and dog(s) Sexually active: Yes Do you think of yourself as: bisexual Current gender identity: female What is your relationship status?: How often do you talk on the phone with friends or family?: once per week How often do you get together with friends or relatives?: once per week Do you belong to any clubs or organized social groups?: no Panel score (0-1 are the most socially isolated patients): 1 What type of physical activity do you participate in: regular exercise Duration: 30-45 minutes/day Frequency: 3-4 times per week Codi/Congregation: None Special codi needs: No Seatbelt use: sometimes Drive intox or ride w/intox long haul truck driver: No Do you feel safe at home: Yes Do you feel safe in your relationship?: Yes Female Reproductive History Menstrual control method: progestin IUCD
[2025-05-23] MEDS: Normal Saline 1,000 ML 1000 ML IV (19:32)
[2025-05-23] MEDS: Ondansetron 4 MG/2 ML VIAL IVP (19:33)
[2025-05-23 19:38] LABS: BE (Venous) -1 mmol/L (-2-3); HCO3 (Venous) 25 mmol/L (23-28); O2 Sat (Venous) 49 %; TCO2 (Venous) 22 mmol/L (24-29); pCO2 (Venous) 46 mmHg (41-51); pO2 (Venous) 28 mmHg
[2025-05-23 19:39] LABS: Abs Immature Grans 0.04 10^3/uL (0.0-0.06); HCT 46.0 % (36.0-46.0); HGB 14.9 g/dL (11.2-15.7); Immature Grans % 0.3 %; MCH 26.6 pg (27.0-33.0); MCHC 32.4 % (32.0-36.0); MCV 82 fL (80-95); MPV 10.2 fL (8.0-11.0); Platelet Count 387 10^3/uL (130-400); RBC 5.60 10^6/uL (3.93-5.22); RDW 14.2 % (11.7-14.6); RDW-SD 42.1 fL; WBC 14.28 10^3/uL (4.4-10.8)
[2025-05-23 19:44] LABS: Lab Add On Test DONE
--- NOTE | 2025-05-23 19:45 | DI.CT_ITS ---
Exam(s) CT ABDOMEN PELVIS W EXAM: CT ABDOMEN PELVIS W CLINICAL HISTORY: n/v/d abd pain. TECHNIQUE: Imaging Protocol: Axial computed tomography images with coronal and sagittal reformatted images were created and reviewed CONTRAST MATERIAL: Intravenous: Omnipaque 350 Contrast volume:100 ml Oral: no COMPARISON: No exams were available for comparison FINDINGS: ABDOMEN and PELVIS: Lung Bases: No acute findings. Liver: Normal density. No suspicious mass. Gallbladder and biliary tract: Cholecystectomy. No biliary dilation. Pancreas: Normal density. No abnormal calcifications or inflammatory process. No evidence of mass. Spleen: Normal. Kidneys: Normal size, contour and axis. No radiodense stones. No obstructive uropathy. No suspicious masses seen. Adrenal glands: No masses seen. Vasculature: Abdominal aorta non-dilated. Soft tissues: Unremarkable. Bladder: No gross wall thickening. No calculi.No focal mass. Bowel: No obstruction. No bowel wall thickening. Appendix normal.Are there is some fluid in the colon which could indicate diarrheal illness. The left colon is mainly decompressed. Peritoneal cavity: No ascites. No focal collection. No mesenteric inflammatory response. No free air. Bones: Unremarkable for age. Reproductive organs: Unremarkable. IUD in place. Lymph nodes: No pathologically enlarged lymph nodes. IMPRESSION:: No acute abnormality in the abdomen or pelvis. Small amount of colonic fluid could indicate diarrheal illness. The preliminary [facility] report was reviewed. RADIATION DOSE DELIVERED: 856.45mGy.cm Total DLP DATA REPOSITORY: All CT scans at this facility are submitted to the National Radiology Data Registry (NRDR) Dose Index Registry (DIR) with the [employer] (ACR). RADIATION OPTIMIZATION: All CT scans at this facility use at least one of these dose optimization techniques: automated exposure control; mA and/or kV adjustment per patient size (includes targeted exams where dose is matched to clinical indication); or iterative reconstruction.
[2025-05-23 19:52] LABS: Lipase 47 U/L (<78)
[2025-05-23 19:56] LABS: ALT 23 U/L (14-59); AST 13 U/L (15-37); Albumin 4.5 g/dL (3.4-5.0); Alkaline Phosphatase 152 U/L (46-116); Anion Gap 14.2 mmol/L (3-11); BUN 14 mg/dL (7-18); Bilirubin, Total 0.6 mg/dL (0.2-1.0); CO2 25.8 mmol/L (21.0-32.0); Calcium 9.2 mg/dL (8.5-10.1); Chloride 101 mmol/L (98-107); Estimated GFR 69.49 (mL/min/1.73m2); Glucose 151 mg/dL (74-106); Magnesium 2.1 mg/dL (1.8-2.4); Potassium 3.2 mmol/L (3.5-5.1); Sodium 141 mmol/L (136-145); Total Protein 9.1 g/dL (6.4-8.2)
[2025-05-23] MEDS: Omnipaque 350 MG/ML 100 ML BTL IJ (20:07)
[2025-05-23] MEDS: Normal Saline Flush 10 ML SYR IVP (20:08)
[2025-05-23] MEDS: Normal Saline - Diluent 50 ML VIAL IJ (20:08)
[2025-05-23 20:24] LABS: COVID-19 PCR Negative (Negative); RSV PCR Negative (Negative)
--- NOTE | 2025-05-23 21:00 | DI.[facility]_ITS ---
PROCEDURE INFORMATION: Exam: CT Abdomen And Pelvis With Contrast Exam date and time: 05/23/2025 8:08 PM Age: 49 years old Clinical indication: Nausea and vomiting and other: Diarrhea; Prior surgery; Surgery date: 6+ months; Surgery type: Cholecystectomy, TECHNIQUE: Imaging protocol: Computed tomography of the abdomen and pelvis with contrast. Radiation optimization: All CT scans at this facility use at least one of these dose optimization techniques: automated exposure control; mA and/or kV adjustment per patient size (includes targeted exams where dose is matched to clinical indication); or iterative reconstruction. Contrast material: OMNIPAQUE 350; Contrast volume: 100 ml; Contrast route: INTRAVENOUS (IV); COMPARISON: US RENAL PELVIC TRANSVAGINAL 12/26/2023 7:44 AM FINDINGS: Lungs: Lung bases are clear. Liver: The liver has a normal appearance. Gallbladder and biliary ducts: The gallbladder is surgically absent. Pancreas: The pancreas demonstrates normal size. No pancreatic ductal dilatation. Spleen: The spleen demonstrates normal size. Adrenal glands: The adrenal glands have a normal appearance. Kidneys and ureters: The kidneys are normal in size. No hydronephrosis. No hydroureter or ureterolithiasis. Stomach and bowel: Unremarkable. No obstruction. No mucosal thickening. Appendix: The appendix is thin walled. Intraperitoneal space: Unremarkable. No free air. No significant fluid collection. Vasculature: The IVC and aorta have a normal appearance. Lymph nodes: No enlarged lymph nodes. Urinary bladder: The bladder is decompressed. Reproductive: The uterus has a normal appearance. An IUD is present in the uterine fundus where expected. Bones/joints: Bones have a normal appearance. No acute fracture or suspicious bone lesion. There is incidentally noted bilateral sacroiliac joint sclerosis. No suspicious bony erosions. Soft tissues: Unremarkable. IMPRESSION: 1. No acute intra-abdominal findings. 2. Normal appendix. Dictated and Authenticated by: Pamela Tipton MD. Orderin Sandra Gamino MD
[2025-05-23] MEDS: Lactated Ringers 1,000 ML 1000 ML IV (21:20)
[2025-05-24 00:06] VITALS: BP 137/71; PULSE 76; RESP 18; O2SAT 100
== END 2025-05-24 00:07 | disposition home or self-care (01) ==
PROVIDERS: Emergency Provider Nurse Practitioner Family; PCP Nurse Practitioner
DX: K52.9 Noninfective gastroenteritis and colitis, unspecified (principal); E87.6 Hypokalemia
CPT/HCPCS: 99285; 99284; 36415; 96374; 80053; 82805; 83690; 87637; 96361; 74177; 83735; 85025; J2405; J3490

== ENCOUNTER 2025-07-19 06:14 | Day surgery (SDC) | payer OTHER, SELFPAY ==
[2025-07-19] VITALS (12 sets, daily range): BP systolic 104–129; BP diastolic 50–115; PULSE 75–90; RESP 14–23; TEMP 36–36.7; O2SAT 97–100; BMI 39.4
[2025-07-19] MEDS: Lactated Ringers 1,000 ML 80 ML IV (07:02)
--- NOTE | 2025-07-19 07:11 | W.ANESPRE ---
General Info Date of Service Date Performed: 07/19/25 Height: 5 ft 3 in Weight: 101 kg Body Mass Index (BMI): 39.4 Surgical Procedure: Operation Date: 07/19/25 07:35 Proposed Procedure Side Surgeon p Colonoscopy/Gastroscopy Mari Santiago MD Meds Allergies and Home Medications Allergies Allergy/AdvReac Type Severity Reaction Status Date / Time shrimp Allergy Intermediate hives, Verified 07/19/25 06:28 swelling ampicillin AdvReac Intermediate Swelling/Ed Verified 07/19/25 06:28 rakan Home Medication ?Medication ?Instructions ?Recorded aspirin 81 mg tablet,delayed 81 mg PO DAILY 05/31/22 release (Adult Low Dose Aspirin) fluticasone propionate 50 1 spray intranasal DAILY 09/11/22 mcg/actuation nasal spray,suspension Azealic Acid 15% Gel topical QPM 11/14/22 metronidazole 0.75 % topical cream 1 applic topical QAM 11/14/22 levonorgestrel 20.4 mcg/24 hr (up 1 device intrauterine ONCE 03/11/23 to 8 yrs) 52 mg intrauterine device (Liletta) albuterol sulfate 90 mcg/actuation 1 puff inhalation Q4H PRN 06/26/24 aerosol inhaler shortness of breath or wheezing #8.5 grams ipratropium 0.5 mg-albuterol 3 mg 3 ml inhalation Q4H PRN shortness 06/26/24 (2.5 mg base)/3 mL nebulization of breath or wheezing #90 mL soln semaglutide 1 mg/dose (4 mg/3 mL) 1 mg (0.75 mL) subcut QWEEK #3 mL 09/21/24 subcutaneous pen injector atorvastatin 20 mg tablet See Rx Instructions .Route 02/09/25 .COMPLEX #90 tabs metoprolol succinate 50 mg See Rx Instructions .Route 02/09/25 tablet,extended release 24 hr .COMPLEX #90 tabs isosorbide mononitrate 60 mg See Rx Instructions .Route 04/27/25 tablet,extended release 24 hr .COMPLEX #90 tabs meloxicam 7.5 mg tablet 7.5 mg PO DAILY PRN 05/06/25 dimenhydrinate 25 mg chewable 50 mg PO Q8H PRN 06/25/25 tablet (Dramamine) polyethylene glycol 3350 17 17 g PO BID constipation #238 grams 06/25/25 gram/dose oral powder (Miralax) bisacodyl 5 mg tablet,delayed 5 mg PO ONCE colonscopy bowel prep 07/07/25 release (Dulcolax (bisacodyl)) #4 tabs polyethylene glycol 3350 17 238 g PO ONCE colonoscopy prep 07/07/25 gram/dose oral powder #238 grams Current Visit Medications: Current Medications Generic Name Dose Route Start Last Admin Trade Name Freq PRN Reason Stop Dose Admin Ringer's Solution 1,000 mls @ 80 mls/hr 07/19/25 06:00 07/19/25 07:02 IV 08/15/25 23:59 80 mls/hr INFUSION JUAN RAMON Administration Sodium Chloride 0 ml 07/19/25 06:00 Normal Saline Flush 10 Ml Syr IV 08/15/25 23:59 PRN PRN Sodium Chloride 0 ml 07/19/25 06:00 Normal Saline 10 Ml Vial IJ 08/15/25 23:59 DIRECTED PRN Sterile Water 0 ml 07/19/25 06:00 Water,Injection,Sterile 10 Ml Vial IJ 08/15/25 23:59 DIRECTED PRN PFSH Active Problems Active Problems: Problem Status Onset Code Abdominal distension Acute R14.0 Vomiting Acute R11.10 Alternating constipation and diarrhea Acute R19.8 Seasonal allergies Acute J30.2 Sore throat Acute J02.9 Breast nodule Acute N63.0 Sebaceous cyst Acute L72.3 Sensorineural hearing loss (SNHL) of both ears Acute H90.3 Lateral epicondylitis, right elbow Acute ~11/2024 M77.11 Biceps tendon rupture Acute S46.219A Insomnia Acute G47.00 Hot flashes Acute R23.2 Shortness of breath Acute R06.02 URI (upper respiratory infection) Acute J06.9 IUD surveillance Acute Z30.431 Vitamin D deficiency Acute E55.9 Vitamin B12 deficiency Acute E53.8 Rosacea Acute ~10/2022 L71.9 Microvascular angina Acute I20.8 Diabetes type 2, controlled Acute E11.9 Obesity Chronic E66.9 Other fatigue Acute R53.83 Major depressive disorder, recurrent, mild Acute F33.0 Asthma Chronic J45.909 PCOS (polycystic ovarian syndrome) Acute E28.2 Hypertension Chronic I10 Diabetes Chronic E11.9 Anemia Chronic D64.9 Adjustment disorder with depressed mood Acute F43.21 ANISHA (obstructive sleep apnea) Chronic G47.33 ADHD Acute F90.9 Medical History Medical History COVID (~06/2024) History of arthroplasty of right elbow (~03/2024) 05/21/24 [facility] f/u d/t re injury of r elbow. Rupture of right biceps tendon (~03/2024) Rupture of right distal biceps tendon (~03/2024) 03/19/24 Dr Benitez, [facility] Partial tear of common extensor tendon of right elbow (~03/2024) 03/19/24 Dr Benitez, [facility] 09/01/24 F/U [facility] Surgical History Surgical History H/O elbow surgery (03/31/24) [facility]. right elbow distal biceps repair, lateral epicondylar release and repair, forearm aponeurotomy History of deviated nasal septum (~2018) History of cholecystectomy (2008) History of (2007) Tobacco Smoking/Tobacco Use Status: Former Tobacco Use Alcohol Alcohol Intake: current Alcohol intake frequency: a few times a week Substance Use Substance use: Never Substance use type: does not use Vital Signs and Lab Results Vital Signs Most Recent Vital Signs in EMR: Most Recent Vital Signs Temp Pulse Resp BP Pulse Ox 36.7 C 80 16 129/77 97 07/19/25 06:41 07/19/25 06:41 07/19/25 06:41 07/19/25 06:41 07/19/25 06:41 Point of Care Results Point of Care Results: Finger Stick Blood Glucose 111 07/19/25 06:50 Lab Results Complete Blood Count: WBC 12.3 10^3/uL H 07/01/25, 11:32 RBC 4.53 10^6/uL 07/01/25, 11:32 Hgb 12.5 g/dL 07/01/25, 11:32 Hct 38.9 % 07/01/25, 11:32 Plt Count 353 10^3/uL 07/01/25, 11:32 Complete Metabolic Panel: Sodium, (120-150) 142 07/01/25, 11:32 Potassium, (3.5-5.1) 4.2 mmol/L 07/01/25, 11:32 Chloride 106 mmol/L 07/01/25, 11:32 Carbon Dioxide 22 mmol/L 07/01/25, 11:32 BUN, (7-18) 16 mg/dL 07/01/25, 11:32 Creatinine, (0.55-1.02) 0.74 mg/dL 07/01/25, 11:32 Est GFR (CKD-EPI 2020) 100 mL/min/ 07/01/25, 11:32 Calcium 8.9 mg/dL 07/01/25, 11:32 Albumin 4.3 g/dL 07/01/25, 11:32 Glucose 82 mg/dL 07/01/25, 11:32 C-Reactive Protein 3.36 mg/dL H 07/01/25, 11:32 Liver Function Panel: ALT 16 U/L 07/01/25, 11:32 AST 15 U/L 07/01/25, 11:32 Thyroid Panel: TSH 1.130 uIU/mL 07/01/25, 11:32 Imaging and Studies Imaging and Studies Study information below may be from another EMR and interpreted by another provider. Please see original notes in EMR for more complete details. EKG Summary: 12/30/23: Exam: Resting ECG Reason for Exam: Follow up ekg Patient Location: O HR:62 bpm ECG Measurements Heart Rate 62 AXIS [place] 173 P -7 QRSd 89 QRS 29 QT 414 T25 QTc 421 Conclusion Sinus rhythm...normal P axis, V-rate 50- 99 Otherwise normal ECG Low voltage, precordial leads...precordial leads <1.0mV Anesthesia Assessment and Plan Anesthesia History Personal History: No History of Anesthesia Complications Family History: No Family History of Anesthesia Complications Exercise Tolerance Exercise Tolerance: Metabolic Equivalents>4 Pertinent Negatives Pertinent Negatives: No Major Cardiovascular Symptoms or Complaints and No Major Pulmonary Symptoms or Complaints Cardiac & Pulmonary Exam Cardiac Exam: Normal S1/S2 Heart Sounds Pulmonary Exam: Clear Bilateral Breath Sounds Implantable Cardiac Device Does patient have a Pacemaker or an ICD?: No Airway Exam Known Difficult Airway: Yes Mallampati Class: 4 Mouth Opening: Normal (> 3cm) Thyromental Distance: Less than 3 cm Neck Range of Motion: Full ROM Neck Circumference: Thick Teeth Condition: Normal Dentition Airway Comments: Per [facility] records: Pt is a difficult mask ventilation (requiring 2 person, 2 hand mask ventilation with high PEEP applied). Pti is also a grade 3 view with a mac 3 (tip of epiglottis barely seen despite optimal positioning and cricoid pressure applied). She should only have intubation attempted via video laryngoscopy (grade 1 view with cmac dblade) or fiberoptic methods. ASA Classification ASA Score: ASA 3 Emergency Case?: No NPO Status NPO Status: NPO Clears >2 hours, Solids >8 hours Status Status: Negative HCG Anesthesia Plan Resuscitation Status: Full Code Anesthesia Technique: General Anesthesia Airway Planned: Natural Airway Monitors Used: Standard Monitors Preoperative Comments:: 2 anesthesia providers available for patient, emergency difficult airway supplies in room to include video and fiberoptic scope)
--- NOTE | 2025-07-19 08:03 | W.PM.DSUDISC ---
Date of service: 07/19/25 Discharge Plan Disposition Patient Disposition: Home Condition: Stable Discharge Details Reason For Visit: EGD and Colonoscopy Attending Provider: Mari Santiago Primary Care Provider: Joanne Hernandez Home Meds and New Rx's Prescriptions: Discontinued bisacodyl [Dulcolax (bisacodyl)] 5 mg tablet,delayed release (DR/EC) 5 mg PO ONCE Qty: 4 0RF Rx Instructions: take per colonoscopy instructions polyethylene glycol 3350 17 gram/dose powder 238 g PO ONCE Qty: 238 0RF Rx Instructions: take per colonoscopy instructions No Action fluticasone propionate 50 mcg/actuation spray,suspension 1 spray intranasal DAILY Rx Instructions: administer into each nostril Dramamine 25 mg tablet,chewable 50 mg PO Q8H PRN semaglutide 1 mg/dose (4 mg/3 mL) pen injector 1 mg subcut QWEEK Qty: 3 8RF polyethylene glycol 3350 [Miralax] 17 gram/dose powder 17 g PO BID Qty: 238 2RF Liletta 20.4 mcg/24 hrs (8 yrs) 52 mg intrauterine device 1 device intrauterine ONCE Rx Instructions: as a single dose aspirin [Adult Low Dose Aspirin] 81 mg tablet,delayed release (DR/EC) 81 mg PO DAILY metronidazole 0.75 % cream 1 applic topical QAM Patient Comments: 11/14/22 DERM APPOINTMENT Azealic Acid 15% Gel topical QPM albuterol sulfate 90 mcg/actuation HFA aerosol inhaler 1 puff inhalation Q4H PRN (Reason: shortness of breath or wheezing) Qty: 8.5 6RF ipratropium-albuterol 0.5 mg-3 mg(2.5 mg base)/3 mL solution for nebulization 3 ml inhalation Q4H PRN (Reason: shortness of breath or wheezing) Qty: 90 1RF atorvastatin 20 mg tablet See Rx Instructions .ROUTE .COMPLEX Qty: 90 3RF Dose Instruction: TAKE ONE TABLET BY MOUTH EVERY DAY Rx Instructions: TAKE ONE TABLET BY MOUTH EVERY DAY metoprolol succinate 50 mg tablet extended release 24 hr See Rx Instructions .ROUTE .COMPLEX Qty: 90 3RF Dose Instruction: TAKE ONE TABLET BY MOUTH EVERY DAY Rx Instructions: TAKE ONE TABLET BY MOUTH EVERY DAY isosorbide mononitrate 60 mg tablet extended release 24 hr See Rx Instructions .ROUTE .COMPLEX Qty: 90 3RF Dose Instruction: TAKE ONE TABLET BY MOUTH EVERY DAY Rx Instructions: TAKE ONE TABLET BY MOUTH EVERY DAY meloxicam 7.5 mg tablet 7.5 mg PO DAILY PRN Discharge Instructions Additional Instructions: EGD shows stomach lining irritation only. This is called gastritis. Biopsies taken to check for H pylori and celiac disease. Will let you know what these show when they are back. I want to treat your gastritis with pantoprazole 40mg daily for 3 months. Rx sent. Colonoscopy shows normal exam in regards for a cause for diarrhea and stool changes. One rectal polyp measuring 1cm removed today. Biopsies taken from throughout to examine for microscopic colitis. Complete stool studies and return to office for review of all results. Timing of next colonoscopy will depend on path of the excised polyp. Likely 3 years. Stand Alone Forms: Isidro Overton (DSU), Portal Information Activity:: Activity as Tolerated Diet:: As Tolerated Discharge Orders Discharge Orders: Discharge Order (Routine); Ordered 07/19/25 Ordered By: Mari Santiago DS: Diagnosis Discharge Diagnosis (1) Alternating constipation and diarrhea: Status: Acute (2) Abdominal distension: Status: Acute (3) Vomiting: Status: Acute
--- NOTE | 2025-07-19 08:04 | W.PM.ENDDOP ---
Date of service: 07/19/25 Time of Service: 08:04 Endoscopy Report DATE OF PROCEDURE: 07/19/25 PRE-OP DIAGNOSIS: nausea, vomiting, abdominal distention, diarrhea POST-OP DIAGNOSIS: same PROCEDURE: EGD with biopsy SURGEON: Mari Santiago ANESTHESIA TYPE: General LMA/ETT ESTIMATED BLOOD LOSS: 2 PATHOLOGY: other (1. duodenum biopsy. 2. antrum biopsy) COMPLICATIONS: None DISPOSITION: same day INDICATIONS: Evaluation of upper digestive system for epigastric pain source/cause PROCEDURE DESCRIPTION: GETA used for difficult airway and difficult masking/oxygenation history. Lubricated endoscope was passed through a bite block into the second portion of the duodenum. The endoscope was withdrawn and the duodenum stomach and esophageal mucosa examined. The duodenum appears mildly inflamed. There is no ulceration or erosion. The antrum appears chronically inflamed, degree of inflammation is mild to moderate. The fundus appears normal. The cardia appears normal. There is residual bilious fluid in the stomach. The endoscope was retroflexed and there is no evidence of hiatal hernia. GE junction is at 39cm from the incisors. The distal esophagus is normal without ulceration, varices or candidiasis. The Z-line is regular and there is no evidence of Reid's esophagus. Remainder of the esophagus appears normal aside from an inlet patch in the upper third of the esophagus. Cold forceps biopsies obtained from the duodenum the antrum for microscopic evaluation for enteropathy/celiac sprue and H. pylori. The upper digestive system was desufflated and the endoscope withdrawn. No complications. Assessment and plan: Nausea and Vomiting Abdominal distention Diarrhea gastritis inlet patch of esophagus Gastritis noted on exam. Biopsies obtained to evaluate for H pylori. Recommend PPI given symptoms of nausea, vomiting and distention. No gross signs of enteropathy in duodenum, biopsies obtained and will be followed up on in office.
--- NOTE | 2025-07-19 08:07 | COLE_ITS ---
Date of service: 07/19/25 Time of Service: 08:07 Colonoscopy Report Date of procedure: 07/19/25 Pre-op diagnosis general: 1. Diarrhea of unknown origin. 2. Abdominal distention. 3. N/V Post-op diagnosis procedure note: same (Diarrhea of unknown origin) Procedure: Colonoscopy with biopsy Surgeon: Mari Santiago Anesthesia Type: General LMA/ETT Estimated blood loss (mL): 2 Pathology: other (1. Terminal ileum biopsy. 2. ascending colon biopsy. 3. transverse colon biopsy. 4. descending colon biopsy. 5. Rectum biopsy) Complications: None Prep: Miralax/Dulcolax (Good) Procedure Description: Informed consent was obtained and the patient was taken to the procedure area. The patient was placed in left lateral decubitus position on the procedure table. Timeout was performed. Anesthesia was induced. A lubricated colonosc ope was inserted through the anus and passed to the cecum. The cecum was identified by the ileocecal valve and the appendiceal orifice. The scope was then slowly withdrawn and the colonic and rectal mucosa examined. TI not able to be visually examined, unable to pass scope into valve. Biopsy forcep inserted into valve and TI biopsy obtained. There are no colon mass lesions, polyps, AVMs. There is no inflammatory change. No diverticulosis was seen. Rectum with 1cm peducnulated polyp on short stalk, excised with hot snare and retrieved manually through the anus. Location was at 10cm from the verge. The scope was retroflexed in the anorectal junction examined. Uncomplicated internal hemorrhoids present. Cold forceps biopsies obtained for evaluation for microscopic colitis. Biopsies obtained from terminal ileum, ascending colon, transverse colon, descending colon and rectum. Assessment and plan: Diarrhea abdominal distention nausea/vomiting rectum polyp Normal exam in regards for a cause for diarrhea. One rectal polyp measuring 1cm removed today. Biopsies obtained throughout for microscopic colitis assessment. Complete stool studies and labs and return to office for review of all results. Timing of next colonoscopy will depend on path of the excised polyp. Likely 3 years.
--- NOTE | 2025-07-19 08:24 | BOWEL_PTH ---
PATIENT: Rafia Busby LOC: [facility] U#:[id number] AGE/SX: 49/F ROOM: RE07/19/[address]: Mari Santiago MD : 1975 BED: DIS: 07/19/2025 SPEC #: [id number] RECD: 07/19/25 12:43 STATUS: FINESSE YOO #: [id number] DELROY: 07/19/25 08:[address]: Mari Santiago DEPT: Surgical Specimen RECD BY: Opal Young ENTERED: 07/19/25 12:46 SP TYPE: Bowel OTHR DR: Joanne Hernandez APRN Tissues: 1 - BIOPSY BOWEL 2 - STOMACH BIOPSY 3 - BIOPSY BOWEL 4 - BIOPSY BOWEL 5 - BIOPSY BOWEL 6 - BIOPSY BOWEL 7 - BIOPSY BOWEL 8 - BIOPSY BOWEL Procedures: GROSS AND MICRO LEVEL 4 Comments: [id number]
--- NOTE | 2025-07-19 10:09 | W.ANESPOSTOP ---
Postoperative Evaluation Date, Time and Location Date Performed: 07/19/25 Time Performed: 10:02 Patient Location: Day Surgery Unit Vital Signs Most Recent Imported Vital Signs: Most Recent Vital Signs Temp Pulse Resp BP Pulse Ox 36.4 C L 82 16 127/115 H 99 07/19/25 09:39 07/19/25 09:39 07/19/25 09:39 07/19/25 09:39 07/19/25 09:39 Pain Score Most Recent Pain Score: Most Recent Pain Score Pain Level 0 07/19/25 09:33 Assessment Mental Status: Awake (Alert & Oriented to Patient Baseline) Airway and Respiratory Function: Patent airway with normal (patient baseline) respiratory exam Cardiovascular Function: Hemodynamically Stable Hydration Status: Adequately Hydrated Nausea & Vomiting: No Nausea or Vomiting Pain: Pt. Denies Any Pain Peripheral Nerve Block: Patient did not receive a nerve block Postoperative Comments:: Reports mild sore throat.
== END 2025-07-19 11:45 | disposition home or self-care (01) ==
PROVIDERS: PCP Nurse Practitioner; Visit Provider Surgery
PROC: (CPT 45385; principal; 2025-07-19 07:30)
DX: R19.8 Other specified symptoms and signs involving the digestive system and abdomen (principal); R14.0 Abdominal distension (gaseous); R19.7 Diarrhea, unspecified; R11.2 Nausea with vomiting, unspecified; I10 Essential (primary) hypertension; D12.8 Benign neoplasm of rectum; K29.70 Gastritis, unspecified, without bleeding
CPT/HCPCS: 45385; 45380; 43239; 81025; 88305; J1100; J2003; J2250; J2405; J2704